=== PATIENT | male | born 1945 | race Caucasian/White ===

== ENCOUNTER 2017-05-06 09:37 | Emergency (ER) | payer OTHER ==
[~2017-05-06] VITALS: Ht 185.4 cm; Wt 98.0 kg
[2017-05-06 09:40] VITALS: BP 175/94; PULSE 102; RESP 16; TEMP 98.4; O2SAT 98
[2017-05-06 09:48] VITALS: PULSE 90
--- NOTE | 2017-05-06 10:27 | PD ---
HPI Chief Complaint: Complaint Time Seen by Provider: 10:20 Travel History International Travel<30 days: No Contact w/Intl Traveler<30days: No Traveled to known affect area: No History of Present Illness HPI 71-year-old male with remote history of prostate cancer, presents to the emergency department for evaluation of hematuria. Patient states over the last 2 months he has had intermittent episodes of hematuria. His last being this morning. He states that he had difficulty starting to void and then he voided a blood clot and has urine became clear. He has not informed his primary care provider follow-up with urology for this. Denies any abdominal pain. No nausea or vomiting. No fever or chills. He has no other symptoms to report. PFSH Past Medical History Hx Anticoagulant Therapy: No Cancer: Yes (prostate removed 2006) Cardiovascular Problems: No Chemotherapy: No Cerebrovascular Accident: No Diabetes: No Respiratory: No Tetanus Vaccination: < 5 Years ?: Not Past Surgical History Hysterectomy: No Neurologic Surgery: Yes (bleeding on the brain 2008 s/p fall) Social History Alcohol Use: Yes Tobacco Use: No Substance Use: No Allergies-Medications (Allergen,Severity, Reaction): Coded Allergies: No Known Allergies (Unverified , 05/06/17) Reported Meds & Prescriptions Reported Meds & Active Scripts Active Keflex (Cephalexin) 500 Mg Cap 500 Mg PO Q12H 7 Days Review of Systems Except as stated in HPI: all other systems reviewed are Neg Physical Exam Narrative GENERAL: Well-nourished male patient, in no acute distress SKIN: Focused skin assessment warm/dry. HEAD: Atraumatic. Normocephalic. EYES: Pupils equal and round. No scleral icterus. No injection or drainage. ENT: No nasal bleeding or discharge. Mucous membranes pink and moist. NECK: Trachea midline. No JVD. CARDIOVASCULAR: Regular rate and rhythm. No murmur appreciated. RESPIRATORY: No accessory muscle use. Clear to auscultation. Breath sounds equal bilaterally. GASTROINTESTINAL: Abdomen soft, non-tender, nondistended. Hepatic and splenic margins not palpable. MUSCULOSKELETAL: No obvious deformities. No clubbing. No cyanosis. No edema. NEUROLOGICAL: Awake and alert. No obvious cranial nerve deficits. Motor grossly within normal limits. Normal speech. PSYCHIATRIC: Appropriate mood and affect; insight and judgment normal. Data Data Last Documented VS Vital Signs Date Time Temp Pulse Resp B/P (MAP) Pulse Ox O2 Delivery O2 Flow Rate FiO2 05/06/17 11:16 74 16 144/82 (102) 98 05/06/17 09:40 98.4 Orders Orders Urinalysis - C+S If Indicated (05/06/17 10:27) Labs Laboratory Tests Test 05/06/17 10:45 Urine Color LIGHT-YELLOW Urine Turbidity CLEAR Urine pH 6.0 Urine Specific [place] 1.010 Urine Protein TRACE mg/dL Urine Glucose (UA) NEG mg/dL Urine Ketones 10 mg/dL Urine Occult Blood MOD Urine Nitrite NEG Urine Bilirubin NEG Urine Urobilinogen LESS THAN 2.0 MG/DL Urine Leukocyte Esterase NEG Urine RBC 63 /hpf Urine WBC 7 /hpf Microscopic Urinalysis Comment CULT NOT INDICATED MDM Medical Decision Making Medical Screen Exam Complete: Yes Emergency Medical Condition: Yes Medical Record Reviewed: Yes Differential Diagnosis Acute hemorrhagic cystitis versus renal calculi versus neoplasm Narrative Course 71-year-old male presents to emergency department for evaluation of hematuria. Patient appears without distress. His vital signs are stable. Abdominal exam is benign. Laboratory Tests Test 05/06/17 10:45 Urine Color LIGHT-YELLOW Urine Turbidity CLEAR Urine pH 6.0 Urine Specific [place] 1.010 Urine Protein TRACE mg/dL Urine Glucose (UA) NEG mg/dL Urine Ketones 10 mg/dL Urine Occult Blood MOD Urine Nitrite NEG Urine Bilirubin NEG Urine Urobilinogen LESS THAN 2.0 MG/DL Urine Leukocyte Esterase NEG Urine RBC 63 /hpf Urine WBC 7 /hpf Microscopic Urinalysis Comment CULT NOT INDICATED I have discussed the results of the patient. I will start him on oral antibiotics in case this is a hemorrhagic cystitis, however I have stressed the importance of him following up for further evaluation of this. He is with his daughter and they both verbalized understanding. They agree to return immediately with any acute worsening symptoms. Diagnosis Primary Impression: Hematuria Qualified Codes: R31.9 - Hematuria, unspecified Referrals: Good Lozada DO Primary Care Physician Urologist Patient Instructions: General Instructions, Hematuria (ED) Additional Instructions: It is important that you seek urology evaluation for further evaluation of your hematuria even if it resolve following antibiotic use Return immediately to the emergency department with any acute worsening symptoms Med/Other Pt SpecificInfo: Prescription(s) given Scripts Cephalexin (Keflex) 500 Mg Cap 500 MG PO Q12H for Infection for 7 Days, CAP 0 Refills Prov: Shea Gore 05/06/17 Disposition: 01 DISCHARGE HOME Condition: Stable Shea Gore May 06, 2017 10:27
[2017-05-06 11:00] LABS: BLOOD, URINE MOD (NEG); COMMENT (UR) CULT NOT INDICATED; CULTURE IF INDICATED CULT NOT INDICATED; GLUCOSE,URINE NEG (NEG); KETONE, URINE 10 mg/dL (NEG); NITRITE,URINE NEG (NEG); URINE COLOR LIGHT-YELLOW (YELLW/STRAW)
[2017-05-06] MEDS ORDERED: CEPH-460 PO (11:08)
[2017-05-06 11:16] VITALS: BP 144/82
== END 2017-05-06 11:23 | disposition home or self-care (01) ==
LOC: NEPD 09:37
DX: R31.9 Hematuria, unspecified (principal); Z85.46 Personal history of malignant neoplasm of prostate
CPT/HCPCS: 81001; 99283

== ENCOUNTER 2018-05-19 19:44 | Inpatient (IN) ==
[2018-05-19] MEDS ORDERED: HYDROmorphone PF Inj 2 MG/ML Vial IV.PUSH ONE ×2 (19:53→21:04)
--- NOTE | 2018-05-19 20:00 | ED ---
HPI General Chief complaint: Pain: Chronic Stated complaint: Leg pain Time Seen by Provider: 05/19/18 19:53 Source: patient, EMS and old records reviewed History of Present Illness HPI narrative: The patient is 72-year-old male with stage IV bone cancer bilateral thighs that was seen here at 9 AM for intractable pain was treated with IV Dilaudid. He was discharged sent home but family with help the hydrocodone that he has because they felt like he might interact with the Dilaudid that was given to him. The called EMS and brought to the emergency department for evaluation and pain management. His primary care physician is Dr. Gonzalez and Dr. Boyer oncology. Has Hx/o primary prostate cancer Location: lower extremity (proximal thighs bilaterally.) Radiation: non-radiation Severity: severe Severity scale (1-10): 10 Quality: stabbing and sharp Pain Consistency: constant Relieving factors: none Exacerbating factors: movement Treatments prior to arrival: other (IV Morphine 5mg) Related Data Home Medications Medication Instructions Recorded Confirmed baclofen 10 mg PO TID 05/19/18 05/19/18 hydrocodone-acetaminophen 1 tab PO Q4-6H PRN 05/19/18 05/19/18 Previous Rx's Medication Instructions Recorded hydromorphone [Dilaudid] 2 mg PO Q6H PRN #24 tab 05/19/18 bisacodyl [Bisac-Evac] 10 mg ND DAILY PRN ea 05/20/18 hydromorphone 1 mg IV.PUSH Q3H PRN ml 05/20/18 lactulose 30 ml PO DAILY PRN ml 05/20/18 magnesium hydroxide [Milk of 30 ml PO Q12H PRN ml 05/20/18 Magnesia] morphine 4 mg IV.PUSH Q1H PRN ml 05/20/18 oxycodone 10 mg PO Q4H PRN tab 05/20/18 oxycodone [OxyContin] 20 mg PO Q12HR tab 05/20/18 sennosides [Senna Lax] 17.2 mg PO Q12H PRN tab 05/20/18 sennosides-docusate sodium [Senna 1 tab PO BID tab 05/20/18 Plus] Allergies Allergy/AdvReac Type Severity Reaction Status Date / Time No Known Allergies Allergy Verified 05/19/18 19:52 Review of Systems ROS: all other systems reviewed are negative PMFSH History History Provided By: Patient, Medical Record and Bobbin Winder Tender / EMT Medical History Medical History Chronic anemia (Acute) Chronic kidney disease, stage 3 (Acute) Diabetes mellitus (Acute) History of subdural hemorrhage (Acute) Hyperlipidemia (Acute) Metastatic bone cancer (Acute) Prostate CA (Acute) Surgical History Surgical History H/O prostatectomy (Acute) History of inguinal hernia repair (Acute) Social History Social History Substance History: No History of Abuse Second Hand Smoke Exposure: No Smoking Status: Former smoker Tobacco Type: Cigarettes How Often Do You Have a Drink Containing Alcohol: Monthly or less Recent Travel in [facility] within the Last 8 Weeks: No Recent Out of Country Travel within the Last 8 Weeks: No Exam Narrative Exam Narrative: GENERAL: alert in moderate distress from pain. SKIN: Focused skin assessment warm/dry. HEAD: Atraumatic. Normocephalic. EYES: Pupils equal and round. No scleral icterus. No injection or drainage. ENT: No nasal bleeding or discharge. Mucous membranes pink and moist. NECK: Trachea midline. No JVD. CARDIOVASCULAR: Regular rate and rhythm. No murmur appreciated. RESPIRATORY: No accessory muscle use. Clear to auscultation. Breath sounds equal bilaterally. GASTROINTESTINAL: Abdomen soft, non-tender, nondistended. Hepatic and splenic margins not palpable. MUSCULOSKELETAL: No obvious deformities. severe tendernees to palpation over the bilateral thighs. No clubbing. No cyanosis. No edema. NEUROLOGICAL: Awake and alert. No obvious cranial nerve deficits. Motor grossly within normal limits. Normal speech. PSYCHIATRIC: Appropriate mood and affect; insight and judgment normal. Course Hospital Course: Patient required multiple doses of IV Dilaudid. There was erroneous lab draw for potassium of 2.7 and repeat was within normal limits likely a line draw. Otherwise unremarkable evaluation with the exception of persistent hypertension likely secondary to pain improved after pain medications given. Reevaluation(s) Reevaluation #2: pt is resting more comfortably than before. His pain has subsided. BP is still elevated we will rechceck. Last measurment was 182/90 Time: 21:25 Initial Documented Vital Signs Temperature 98 F 05/19/18 19:52 Pulse Rate 98 H 05/19/18 19:52 Respiratory Rate 18 05/19/18 19:52 Blood Pressure 182/90 H 05/19/18 19:52 Pulse Oximetry 95 05/19/18 19:52 Last Documented Vital Signs Temperature 97.2 F L 05/20/18 16:00 Pulse Rate 86 05/20/18 16:00 Respiratory Rate 18 05/20/18 16:00 Blood Pressure 192/82 H 05/20/18 16:00 Pulse Oximetry 97 05/20/18 16:00 Medical Decision Making MDM Narrative Medical Screen Exam Complete: Yes Emergency Medical Condition: Yes Medical Records Medical records reviewed: Yes I reviewed the patient's medical records. Lab Data Lab results reviewed: Yes I reviewed the patient's lab results. Result diagrams: 05/19/18 20:33 05/19/18 22:29 Lab Results 05/19/18 05/19/18 05/19/18 Range/Units 20:33 20:33 22:29 WBC 5.6 (4.0-11.0) th/mm3 RBC 3.91 L (4.50-5.90) mil/mm3 Hgb 10.4 L (13.0-17.0) gm/dL Hct 31.2 L (39.0-51.0) % MCV 79.7 L (80.0-100.0) fL MCH 26.7 L (27.0-34.0) pg MCHC 33.5 (32.0-36.0) % RDW 14.6 (11.6-17.2) % Plt Count 223 (150-450) th/mm3 MPV 7.9 (7.0-11.0) fL Neut % (Auto) 81.2 H (16.0-70.0) % Lymph % (Auto) 9.0 (9.0-44.0) % [place] % (Auto) 9.2 H (0.0-8.0) % Eos % (Auto) 0.5 (0.0-4.0) % Baso % (Auto) 0.1 (0.0-2.0) % Neut # (Auto) 4.6 (1.8-7.7) th/mm3 Lymph # (Auto) 0.5 L (1.0-4.8) th/mm3 [place] # (Auto) 0.5 (0.0-0.9) th/mm3 Eos # (Auto) 0.0 (0.0-0.4) th/mm3 Baso # (Auto) 0.0 (0.0-0.2) th/mm3 WBC Differential . Differential Comment Auto diff final Sodium 146 H 143 (136-145) meq/L Potassium 2.9 L* D 4.5 D (3.5-5.1) meq/L Chloride 117 H D 107 D (98-107) meq/L Carbon Dioxide 20.2 L 26.2 (21.0-32.0) meq/L Anion Gap 9 10 (5-15) meq/L BUN 22 H 27 H (7-18) mg/dL Creatinine 1.10 1.52 H (0.60-1.30) mg/dL Estimated GFR 65 L 45 L (>89) mL/min Random Glucose 133 H 121 H (74-106) mg/dL Calcium 6.4 L* D 9.2 D (8.5-10.1) mg/dL Prot Corrected Calcium 7.6 L (8.5-10.1) mg/dL Total Protein 4.6 L (6.4-8.2) g/dL Urine Color (Yellw/Straw) Urine Clarity (Clear) Urine pH (5.0-8.5) Ur Specific [place] (1.002-1.035) Urine Protein (Neg-Trace) mg/dL Urine Glucose (UA) (Negative) mg/dL Urine Ketones (Negative) mg/dL Urine Occult Blood (Negative) Urine Nitrate (Negative) Urine Bilirubin (Negative) Urine Urobilinogen (Less than 2) mg/dL Ur Leukocyte Esterase (Negative) Urine RBC (0-3) /hpf Urine WBC (0-5) /hpf Ur Squamous Epith Cells (0-5) /hpf Urine Bacteria (None) /hpf Micro UA Comment Ur Microscopic Review Urine Culture Comments 05/20/18 Range/Units 09:00 WBC (4.0-11.0) th/mm3 RBC (4.50-5.90) mil/mm3 Hgb (13.0-17.0) gm/dL Hct (39.0-51.0) % MCV (80.0-100.0) fL MCH (27.0-34.0) pg MCHC (32.0-36.0) % RDW (11.6-17.2) % Plt Count (150-450) th/mm3 MPV (7.0-11.0) fL Neut % (Auto) (16.0-70.0) % Lymph % (Auto) (9.0-44.0) % [place] % (Auto) (0.0-8.0) % Eos % (Auto) (0.0-4.0) % Baso % (Auto) (0.0-2.0) % Neut # (Auto) (1.8-7.7) th/mm3 Lymph # (Auto) (1.0-4.8) th/mm3 [place] # (Auto) (0.0-0.9) th/mm3 Eos # (Auto) (0.0-0.4) th/mm3 Baso # (Auto) (0.0-0.2) th/mm3 WBC Differential Differential Comment Sodium (136-145) meq/L Potassium (3.5-5.1) meq/L Chloride (98-107) meq/L Carbon Dioxide (21.0-32.0) meq/L Anion Gap (5-15) meq/L BUN (7-18) mg/dL Creatinine (0.60-1.30) mg/dL Estimated GFR (>89) mL/min Random Glucose (74-106) mg/dL Calcium (8.5-10.1) mg/dL Prot Corrected Calcium (8.5-10.1) mg/dL Total Protein (6.4-8.2) g/dL Urine Color Yellow (Yellw/Straw) Urine Clarity Hazy H (Clear) Urine pH 5.0 (5.0-8.5) Ur Specific [place] 1.017 (1.002-1.035) Urine Protein 30 H (Neg-Trace) mg/dL Urine Glucose (UA) Negative (Negative) mg/dL Urine Ketones Trace H (Negative) mg/dL Urine Occult Blood Moderate H (Negative) Urine Nitrate Negative (Negative) Urine Bilirubin Negative (Negative) Urine Urobilinogen Less than 2 (Less than 2) mg/dL Ur Leukocyte Esterase Trace H (Negative) Urine RBC 6 H (0-3) /hpf Urine WBC 50 H (0-5) /hpf Ur Squamous Epith Cells <1 (0-5) /hpf Urine Bacteria Occasional H (None) /hpf Micro UA Comment Culture indicated Ur Microscopic Review Not Reportable Urine Culture Comments Culture indicated Discharge Plan Discharge Disposition Patient Disposition: 51 Hospice/Med Facility Discharge Condition Condition: Fair Discharge Order Discharge Orders: Discharge Order (Routine); Ordered 05/20/18 Ordered By: Tavares Kendrick Discharge Details Anticipated Discharge Date: 05/20/18 Discharge Comment: DC TO INPT HOSPICE Diagnosis: Intractable pain, Cancer of bone, Accelerated hypertension Physicians Team ED Provider: Niko Bundy Primary Care Provider: UNKNOWN, Attending Provider: Tavares Kendrick Other Providers: Matteo Vela ; Miguel Rivera ; Cami Adorno Discharge Interventions Interventions: ED Discharge Assessment Last Done: 05/20/18 04:15 Vital Signs Last Done: 05/19/18 23:58 Status ED Status: Left Department Discharge Information Discharge Date/Time: 05/20/18 04:53
[2018-05-19 20:58] LABS: Baso % (Auto) 0.1 % (0.0-2.0); Eos % (Auto) 0.5 % (0.0-4.0); Hematocrit 31.2 % (39.0-51.0); Hemoglobin 10.4 gm/dL (13.0-17.0); Lymph # (Auto) 0.5 th/mm3 (1.0-4.8); Mean Corpuscular HGB Conc 33.5 % (32.0-36.0); Mean Corpuscular Hemoglobin 26.7 pg (27.0-34.0); Mean Corpuscular Volume 79.7 fL (80.0-100.0); Mean Platelet Volume 7.9 fL (7.0-11.0); Mono # (Auto) 0.5 th/mm3 (0.0-0.9); Mono % (Auto) 9.2 % (0.0-8.0); Neut # (Auto) 4.6 th/mm3 (1.8-7.7); Neut % (Auto) 81.2 % (16.0-70.0); Platelet Count 223 th/mm3 (150-450); Red Blood Count 3.91 mil/mm3 (4.50-5.90); Red Cell Distribution Width 14.6 % (11.6-17.2); White Blood Count 5.6 th/mm3 (4.0-11.0)
[2018-05-19 21:25] LABS: Calcium 6.4 mg/dL (8.5-10.1); Carbon Dioxide 20.2 meq/L (21.0-32.0)
[2018-05-19 21:27] LABS: Potassium 2.9 meq/L (3.5-5.1)
[2018-05-19 21:43] LABS: Total Protein 4.6 g/dL (6.4-8.2)
[2018-05-19] MEDS: Potassium Chlor 20 mEq Premix 20 MEQ/100 ML PIGGYBACK IV.SIG ONE ×2 (22:02→23:57)
[2018-05-19 23:45] LABS: Potassium 4.5 meq/L (3.5-5.1)
[2018-05-19 23:46] LABS: Calcium 9.2 mg/dL (8.5-10.1); Carbon Dioxide 26.2 meq/L (21.0-32.0)
[2018-05-20] MEDS ORDERED: Naloxone Inj 0.4 MG/ML Vial IV.PUSH PRN (00:51)
[2018-05-20] MEDS ORDERED: Morphine Inj 4 MG/ML Vial IV.PUSH PRN (00:51)
[2018-05-20] MEDS ORDERED: Bisacodyl 10 MG Supp RECTAL PRN (00:56)
[2018-05-20] MEDS: Sod Chloride 0.9% Inj 1,000 ML IV.CONT SCH ×2 (01:56→12:45)
[2018-05-20] MEDS: oxyCODONE HCL 20 MG Controlled Release Tablet PO SCH ×2 (02:07→08:05)
--- NOTE | 2018-05-20 02:11 | P.HPIM ---
History of Present Illness Primary Care Physician: UNKNOWN History of Present Illness: 32-year-old male with a history of 4 metastatic prostate cancer who follows with Dr. Vela, who was seen in the ER this morning for intractable left hip pain CT showed metastasis to left hip, and patient was sent home with a prescription for Dilaudid. Prescription was not able to be filled on time, and patient found to be in acute intractable pain at home, brought in around 6 PM. Patient is currently somnolent, wakes up for exam, appears to be awake and listening to conversation, would not arouse to sternal rub, however will Suddenly and asked me to examine his left leg as I was moving the sheets off his leg. Patient is disoriented to year and month. Daughter at bedside provides most of the history. She says they have talked with hospice but that [place] [facility] will not let them do chemotherapy. She says that father is a DNR. She is interested in palliative care consultation. Family history attempted but patient very poor historian Review of Systems All other systems reviewed negative except as stated in HPI PMFSH - History History Provided By: Patient, Medical Record, Billboard Erector Helper / EMT - Medical History Medical History: Medical History (Last Reviewed 05/19/18 @ 19:57 by Niko Bundy DO) Metastatic bone cancer Prostate CA - Surgical History Surgical History: Surgical History (Last Updated 05/20/18 @ 02:03 by Jason Martinez MD) H/O prostatectomy - Tobacco History Second Hand Smoke Exposure: No Tobacco Use In Past 30 Days: No Smoking Status: Never smoker - Alcohol History How Often Do You Have a Drink Containing Alcohol: Never - Substance Use History Substance History: No History of Abuse - Travel History Recent Travel in the [place] Within the Last 8 Weeks: No Recent Travel Out of the Country Within the Last 8 Weeks: No - Immunization History Tetanus Immunization: Unsure Hx Influenza Vaccine This Season: No Medications and Allergies Active Medications: Active Medications Al Hydroxide/Mg Hydroxide (Milk Of Magnconstantino Liq) 30 ml PO Q12H PRN PRN Reason: Mild Constipation Baclofen (Lioresal) 10 mg PO TID DANIELLA Bisacodyl (Dulcolax Supp) 10 mg RECTAL DAILY PRN PRN Reason: SEVERE CONSITIPATION Hydromorphone HCl (Dilaudid Pf Inj) 1 mg IV.PUSH Q3H PRN PRN Reason: BREAKTHROUGH PAIN Sodium Chloride (Ns Inj) 1,000 mls @ 100 mls/hr IV.CONT .Q10H [facility] Last Admin: 05/20/18 01:56 Dose: 100 mls/hr Lactulose (Lactulose Liq) 30 ml PO DAILY PRN PRN Reason: SEVERE CONSITIPATION Morphine Sulfate (Morphine Inj) 4 mg IV.PUSH Q1H PRN PRN Reason: Pain Scale 7-10 (Intractable) Naloxone HCl (Narcan Inj) 0.4 mg IV.PUSH UNSCH PRN PRN Reason: SEE LABEL COMMENTS Oxycodone HCl (Roxicodone) 5 mg PO Q4H PRN PRN Reason: PAIN SCALE 3 TO 5 Oxycodone HCl (Roxicodone) 10 mg PO Q4H PRN PRN Reason: PAIN SCALE 6 TO 10 Oxycodone HCl (Oxycontin Cr) 20 mg PO Q12HR [facility] Pt Own Xtandi 160 Mg 0 each PO DAILY [facility] Senna/Docusate Sodium (Elizabeth-Colace) 1 tab PO BID [facility] Sennosides (Senokot) 17.2 mg PO Q12H PRN PRN Reason: Moderate Constipation Allergies Allergy/AdvReac Type Severity Reaction Status Date / Time No Known Allergies Allergy Verified 05/19/18 19:52 Home Medications Medication Instructions Recorded Confirmed Type baclofen 10 mg PO TID 05/19/18 05/19/18 History enzalutamide [Xtandi] 160 mg PO DAILY 05/19/18 05/19/18 History hydrocodone-acetaminophen 1 tab PO Q4-6H PRN 05/19/18 05/19/18 History Exam Vital signs: Vital Signs 05/19/18 19:52 05/19/18 22:33 05/19/18 23:58 Temperature 98 F Pulse Rate 98 H 85 81 Respiratory Rate 18 20 20 Blood Pressure 182/90 H 173/78 H 162/77 H Pulse Oximetry 95 98 99 Intake & Output 05/19/18 05/19/18 05/20/18 06:59 18:59 06:59 Weight 95.254 kg Narrative: GENERAL: Patient sleeping, wakes up for exam. Oriented to place, not to year or month. SKIN: Warm and dry. HEAD: Atraumatic. Normocephalic. EYES: Pupils equal and round. No scleral icterus. No injection or drainage. ENT: No nasal bleeding or discharge. Mucous membranes pink and moist. NECK: Trachea midline. No JVD. CARDIOVASCULAR: Regular rate and rhythm. RESPIRATORY: No accessory muscle use. Clear to auscultation. Breath sounds equal bilaterally. GASTROINTESTINAL: Abdomen soft, non-tender, nondistended. Hepatic and splenic margins not palpable. MUSCULOSKELETAL: Extremities without clubbing, cyanosis, or edema. No obvious deformities. NEUROLOGICAL: Awake and alert. No obvious cranial nerve deficits. Motor grossly within normal limits. Patient moves bilateral upper extremities, as well as bilateral lower extremities. Does not want me to examine left leg. Perfusion intact. Patient moves legs spontaneously no broken skin. Results - Labs CBC & Chem 7: 05/19/18 20:33 05/19/18 22:29 Labs: Short CBC 05/19/18 Range/Units 20:33 WBC 5.6 (4.0-11.0) th/mm3 Hgb 10.4 L (13.0-17.0) gm/dL Hct 31.2 L (39.0-51.0) % Plt Count 223 (150-450) th/mm3 [place] 05/19/18 05/19/18 20:33 22:29 Sodium 146 H 143 Potassium 2.9 L* D 4.5 D Chloride 117 H D 107 D Carbon Dioxide 20.2 L 26.2 BUN 22 H 27 H Creatinine 1.10 1.52 H Calcium 6.4 L* D 9.2 D Caprini VTE Risk Assessment Caprini VTE Risk Assessment: Moderate/High Risk (score >= 2) Caprini Risk Assessment Model: Point Value = 1 Point Value = 2 Point Value = 3 Point Value = 5 Age 41-60 Minor surgery BMI > 25 kg/m2 Swollen legs Varicose veins or History of unexplained or recurrent spontaneous Oral contraceptives or hormone replacement Sepsis (< 1 month) Serious lung disease, including pneumonia (< 1 month) Abnormal pulmonary function Acute myocardial infarction Congestive heart failure (< 1 month) History of inflammatory bowel disease Medical patient at bed rest Age 61-74 Arthroscopic surgery Major open surgery (> 45 min) Laparoscopic surgery (> 45 min) Malignancy Confined to bed (> 72 hours) Immobilizing plaster cast Central venous access Age >= 75 History of VTE Family history of VTE Factor V Leiden Prothrombin [id number] Lupus anticoagulant Anticardiolipin antibodies Elevated serum homocysteine Heparin-induced thrombocytopenia Other congenital or acquired thrombophilia Stroke (< 1 month) Elective arthroplasty Hip, pelvis, or leg fracture Acute spinal cord injury (< 1 month) Prophylaxis Regimen: Total Risk Factor Score Risk Level Prophylaxis Regimen 0-1 Low Early ambulation 2 Moderate Order ONE of the following: *Sequential Compression Device (SCD) *Heparin 5000 units SQ BID 3-4 Higher Order ONE of the following medications: *Heparin 5000 units SQ TID *Enoxaparin/Lovenox 40 mg SQ daily (WT < 150 kg, CrCl > 30 mL/min) *Enoxaparin/Lovenox 30 mg SQ daily (WT < 150 kg, CrCl > 10-29 mL/min) *Enoxaparin/Lovenox 30 mg SQ BID (WT < 150 kg, CrCl > 30 mL/min) AND/OR *Sequential Compression Device (SCD) 5 or more Highest Order ONE of the following medications: *Heparin 5000 units SQ TID (Preferred with Epidurals) *Enoxaparin/Lovenox 40 mg SQ daily (WT < 150 kg, CrCl > 30 mL/min) *Enoxaparin/Lovenox 30 mg SQ daily (WT < 150 kg, CrCl > 10-29 mL/min) *Enoxaparin/Lovenox 30 mg SQ BID (WT < 150 kg, CrCl > 30 mL/min) AND *Sequential Compression Device (SCD) Assessment and Plan - Plan //Metastatic prostate cancer to bone //Intractable malignant pain CT pelvis from this morning with left hip fracture = We will order pain regimen. Start on OxyContin 20 mg twice daily for basal pain control. = We will continue chemotherapy medication Consult urology. Consult palliative care. Will place hospice consult //Patient reports dysuria as a positive finding on review of systems. Will check urinalysis. //CODE STATUS DNR as per discussion with daughter Discussed Condition With: Patient, nurse, ED physician, daughter at bedside.
[2018-05-20] MEDS: Baclofen 10 MG Tablet PO SCH ×3 (08:05→17:29)
[2018-05-20] MEDS ORDERED: XTANDI 40 MG PO SCH (09:00)
[2018-05-20] MEDS ORDERED: Senna/Docusate Sodium 8.6/50 MG Tablet PO SCH (09:00)
--- NOTE | 2018-05-20 10:17 | P.CONPAL ---
Consult Service: Palliative Care Requesting Physician: Jason Martinez Reason for Consult: a. To assist with evaluation and management of symptoms including: Pain, debility b. To assist medical decision maker(s) with: better understanding of current medical conditions; weighing benefits/burdens of medical treatment options; making medical treatment decisions. Primary Care Provider: UNKNOWN History of Present Illness History of Present Illness: Mr. 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 Patient presented to the emergency room via EMS on 05/19/18 with complaints of intractable pain to left hip. Patient had presented earlier on in the morning of 05/19 complaining of left hip pain and CT showed metastasis to left hip. Patient was sent home with a prescription for hydromorphone which he was not able to fill and ended up coming back to the emergency room around 1800 hrs. Femur x-ray done during ER visit 05/19/18 in the morning revealed diffuse bony metastatic disease with no pathologic fracture or joint dislocation. CT done during ER visit in the morning of 05/19/18 revealed widespread bony metastatic disease and increased risk of pathologic fracture due to bone lysis in the proximal left femoral shaft. Urinalysis was positive for urine nitrate and leukocyte esterase as well as urine bacteria-Culture results pending. Patient was originally diagnosed with prostate cancer in April 2007 and he was treated with prostatectomy the same year. He was then diagnosed with stage IV metastatic bone cancer in 2016 and he has undergone chemotherapy and had radiation therapy. Last PSA was 26 in February, and he was started on Xtandi. Patient was being managed by Dr. Vela urology and was referred to radiation/ oncologist for treatment of bone metastases last week. ER course: * Vital signs: temperature 98 degrees Fahrenheit, pulse 98, respirations 18, blood pressure 182/90, O2 saturation 95%. * Laboratory workup revealed WBC 5.6, hemoglobin 10.4, hematocrit 31.2, platelet count 223, sodium 146, potassium 2.9, BUN/creatinine 22/1.10, calcium 6.4, total protein 4.6. * Patient admitted for further evaluation and treatment under hospitalist services. Urology consulted on 05/19/18, consult pending. Clinical course complicated with excruciating pain. Palliative care consulted to assist with symptom management and establishment of goals of medical treatment. Patient seen and examined in the presence of his daughter Jasmin Chavez. Patient is alert, oriented to self, place and situation. Patient endorsing pain all over especially to his left lower extremity. He rates his pain as 7 out of 10 after being medicated with hydromorphone 1 mg approximately 30 minutes before reassessment. Per bedside RN patient has been saying, " let me " and is very painful during care. During this first visit, introduced role of palliative care in regards to symptom management as well as establishment of goals of medical treatment. Patient's daughter and patient receptive to palliative care. Obtained patient's past medical history, and psychosocial history. Reviewed events leading to this hospitalization, clinical course and complications as well as current medical management. Patient appears to be insightful and aware of his current medical status. He demonstrates ability to weigh burdens and benefits of treatments offered. Patient's daughter narrated patient`s progressive trajectory of illness since last year and significant decline in the past month. Readdressed CODE STATUS, patient elected DNR/DNI. Patient is willing to complete & sign [facility] DNR. Patient understands that despite pursuing aggressive treatment, his quality of life continues to deteriorate. Reintroduced hospice philosophy and benefits. Patient states that he no longer wants to pursue any further aggressive treatment. Patient states that he now wants to stop Xtandi or any treatment that will not help with managing of his symptoms. He now wants comfort care only through hospice services. Patient's daughter present during meeting and is supportive of her father`s decision. Patient went ahead and designated his daughter Jasmin as his healthcare surrogate and his son-in-law Kevin as his alternate healthcare surrogate-form completed and signed by patient and witnessed by palliative care VERIFYING MACHINE OPERATOR and bedside RN Patti Mustafa. Patient also signed [facility] DNR. Hospice consult placed. Case discussed with bedside RN, case management, hospice case manager, and Dr. Kendrick. . Function/Cognitive Trajectory: In March [address] and get around including being independent of his ADLs. Patient fell in February, and he has also had poor appetite with decreased oral intake. He has lost approximately 30 pounds in less than a month. Patient has also been having problems with increased weakness and he has been ambulating using a Rollator at home. Currently, patient is in so much pain and is not able to sit upright in bed or ambulate on his own. Per daughter he last ambulated on 05/18/18. Patient`s daughter stated that they have been told that cancer has metastasized to his skull, spine, shoulders, pelvis and bilateral femurs more-so to left femur. Patient was referred to hospice services on 05/15/18 by [facility]. At that time patient met with hospice staff in the presence of his daughter and son on 05/17/18 and his goals where aggressive. Patient wanted enough time to see if the new medication Xtandi he was started on would produce positive results and patient was also seeking radiation treatments because the previous radiation therapy was successful. Goals at that time remained aggressive. Patient did not enroll in hospice services at that time. Review of Systems Constitutional: Reports excessive sweating, Reports fatigue, Reports lack of energy, Reports weakness, Reports weight loss Eyes: Denies blurry vision Ears, Nose, Mouth, and Throat: Reports poor balance, Denies abnormal hearing, Denies hearing loss, Denies nasal congestion, Denies pain with swallowing Cardiovascular: Reports leg pain with activity, Reports leg swelling (Left thigh ), Denies chest pain, Denies shortness of breath Respiratory: Denies chest congestion, Denies cough, Denies shortness of breath Gastrointestinal: Denies difficulty swallowing, Denies incontinent of stools, Denies nausea, Denies vomiting Genitourinary: Reports painful urination (Sometimes) Musculoskeletal: Reports body aches, Reports joint swelling (Left lower extremity), Reports muscle weakness, Reports numbness, Reports tingling Skin/Breast: Denies bleeding lesions, Denies skin ulcer, Denies unusual bruising Neurologic: Reports abnormal movements, Reports frequent falls, Reports unsteadiness, Reports weakness, Reports other (Forgetful) Psychiatric: Reports anxiety, Reports change in appetite Endocrine: Denies increased hunger Hematologic/Lymphatic: Denies easy bruising PMFSH - History History Provided By: Patient, Medical Record - Medical History Medical History: Medical History (Last Updated 05/20/18 @ 10:29 by Em Gonzales) Chronic anemia Chronic kidney disease, stage 3 Diabetes mellitus History of subdural hemorrhage Hyperlipidemia Metastatic bone cancer Prostate CA - Surgical History Surgical History: Surgical History (Last Updated 05/20/18 @ 10:20 by Em Grissom H/O prostatectomy History of inguinal hernia repair - Tobacco History Second Hand Smoke Exposure: No Tobacco Use In Past 30 Days: No Smoking Status: Former smoker Tobacco Type: Cigarettes - Alcohol History How Often Do You Have a Drink Containing Alcohol: Monthly or less - Substance Use History Substance History: No History of Abuse - Travel History Recent Travel in the [place] Within the Last 8 Weeks: No Recent Travel Out of the Country Within the Last 8 Weeks: No - Immunization History Tetanus Immunization: <5 Years Hx Influenza Vaccine This Season: Yes Medications and Allergies Active Medications: Active Medications Al Hydroxide/Mg Hydroxide (Milk Of Magnesia Liq) 30 ml PO Q12H PRN PRN Reason: Mild Constipation Baclofen (Lioresal) 10 mg PO TID [facility] Last Admin: 05/20/18 08:05 Dose: 10 mg Bisacodyl (Dulcolax Supp) 10 mg RECTAL DAILY PRN PRN Reason: SEVERE CONSITIPATION Hydromorphone HCl (Dilaudid Pf Inj) 1 mg IV.PUSH Q3H PRN PRN Reason: BREAKTHROUGH PAIN Sodium Chloride (Ns Inj) 1,000 mls @ 100 mls/hr IV.CONT .Q10H [facility] Last Admin: 05/20/18 01:56 Dose: 100 mls/hr Lactulose (Lactulose Liq) 30 ml PO DAILY PRN PRN Reason: SEVERE CONSITIPATION Morphine Sulfate (Morphine Inj) 4 mg IV.PUSH Q1H PRN PRN Reason: Pain Scale 7-10 (Intractable) Naloxone HCl (Narcan Inj) 0.4 mg IV.PUSH UNSCH PRN PRN Reason: SEE LABEL COMMENTS Oxycodone HCl (Roxicodone) 5 mg PO Q4H PRN PRN Reason: PAIN SCALE 3 TO 5 Oxycodone HCl (Roxicodone) 10 mg PO Q4H PRN PRN Reason: PAIN SCALE 6 TO 10 Last Admin: 05/20/18 06:00 Dose: 10 mg Oxycodone HCl (Oxycontin Cr) 20 mg PO Q12HR [facility] Last Admin: 05/20/18 08:05 Dose: 20 mg Pt Own Xtandi 40 Mg (Capsule) 0 each PO DAILY [facility] Senna/Docusate Sodium (Elizabeth-Colace) 1 tab PO BID [facility] Last Admin: 09/26/18 08:06 Dose: 1 tab Sennosides (Senokot) 17.2 mg PO Q12H PRN PRN Reason: Moderate Constipation Allergies Allergy/AdvReac Type Severity Reaction Status Date / Time No Known Allergies Allergy Verified 05/19/18 19:52 Home Medications Medication Instructions Recorded Confirmed Type baclofen 10 mg PO TID 05/19/18 05/19/18 History hydrocodone-acetaminophen 1 tab PO Q4-6H PRN 05/19/18 05/19/18 History Advance Directives Advance Directives Date on File: 05/20/18 Living Will: Yes Healthcare Surrogate: Yes (Completed and signed today) Health Care Surrogate Name and Number: [facility]:Jasmin Chavez [phone] Alt HCS : Kevin Chavez [phone] Power of Counter Clerk [employer]: Unknown (Patient`s daughter is not sure ifpatient has ever completed DPOA. She called PCP office and they did not have advance directives) Power of [employer] Relationship to Patient: Children Today's verbally stated goals: Not sure if he ever completed a living will. Today patient decided to forgo any further aggressive treatment and now seeks comfort care only through hospice services. . Family/friends goals: Daughter supportive of patient`s decision to forgo aggressive treatment and pursue comfort care only through hospice. . Physical Exam Vital Signs: Vital Signs - 24 hr 05/19/18 19:52 05/19/18 22:33 05/19/18 23:58 Temperature 98 F Pulse Rate 98 H 85 81 Respiratory Rate 18 20 20 Blood Pressure 182/90 H 173/78 H 162/77 H Pulse Oximetry 95 98 99 05/20/18 04:34 05/20/18 06:05 05/20/18 08:00 Temperature 97.9 F Pulse Rate 82 85 Respiratory Rate 18 18 Blood Pressure 177/84 H 182/83 H Pulse Oximetry 99 97 I&O: Intake & Output 05/18/18 05/19/18 05/20/18 05/21/18 06:59 06:59 06:59 06:59 Weight 95.3 kg Physical Exam: CONSTITUTIONAL/GENERAL: This is a chronically ill elderly patient, complaining of pain to his left lower extremity. TUBES/LINES/DRAINS:PIV, condom catheter SKIN: No jaundice, rashes, or lesions. Ecchymoses on upper extremities. No wounds seen anteriorly. Skin temperature appropriate. Not diaphoretic. HEAD: Atraumatic. Normocephalic. EYES: Pupils equal and round and reactive. Extraocular motions intact. No scleral icterus. No injection or drainage. Fundi not examined. ENT: Hearing grossly normal. Nose without bleeding or purulent drainage. Moist oral mucosa NECK: Trachea midline. Supple, nontender. CARDIOVASCULAR: Regular rate and rhythm without murmurs, gallops, or rubs. No JVD. Peripheral pulses symmetric. RESPIRATORY/CHEST: Symmetric, unlabored respirations. Clear to auscultation. Breath sounds equal bilaterally. No wheezes, rales, or rhonchi. GASTROINTESTINAL: Abdomen soft, non-tender, distended. No guarding. Bowel sounds present. GENITOURINARY: Without palpable bladder distension. No catheter MUSCULOSKELETAL: Extremities without clubbing, cyanosis. Edema to left lower extremity no joint tenderness or effusion noted. No calf tenderness. No mottling or clubbing. NEUROLOGICAL: Awake and alert. Motor and sensory grossly within normal limits. Follows commands. Moves all extremities. PSYCHIATRIC: No obvious anxiety/depression. no apparent hallucinations or other psychotic thought process. Diagnostic Tests Laboratory: Laboratory Results - last 72 hr 05/19/18 05/19/18 05/19/18 20:33 20:33 22:29 WBC 5.6 RBC 3.91 L Hgb 10.4 L Hct 31.2 L MCV 79.7 L MCH 26.7 L MCHC 33.5 RDW 14.6 Plt Count 223 MPV 7.9 Neut % (Auto) 81.2 H Lymph % (Auto) 9.0 [place] % (Auto) 9.2 H Eos % (Auto) 0.5 Baso % (Auto) 0.1 Neut # (Auto) 4.6 Lymph # (Auto) 0.5 L [place] # (Auto) 0.5 Eos # (Auto) 0.0 Baso # (Auto) 0.0 WBC Differential . Differential Comment Auto diff final Sodium 146 H 143 Potassium 2.9 L* D 4.5 D Chloride 117 H D 107 D Carbon Dioxide 20.2 L 26.2 Anion Gap 9 10 BUN 22 H 27 H Creatinine 1.10 1.52 H Estimated GFR 65 L 45 L Random Glucose 133 H 121 H Calcium 6.4 L* D 9.2 D Prot Corrected Calcium 7.6 L Total Protein 4.6 L Result Diagrams: 05/19/18 20:33 05/19/18 22:29 Patient/Family Conference Family Conference Location: Bedside Issues Discussed: * Palliative care role, purpose, approach * Additional medical, psychosocial, and spiritual history * Patients general health, functional status, and cognitive changes in the months leading up to the current hospitalization * Patient/family understanding of the current medical problems * Patient/family understanding of prognosis * Patients goals of care as best understood from advance directives and/or conversations and/or values * Current medical treatment options and benefits/burdens of those options * Likely scenarios comparing ongoing aggressive care with a transition to comfort measures only * Questions answered to the best of my ability * Introduced hospice philosophy and benefits * Palliative care contact information provided Assessment and Plan - Symptom Scale (1) Pain 0-10 Scale: 7 (Patient has stage IV metastatic prostate cancer-metastasis to the bone. Generalized, mostly complaining of left lower extremity pain.) (2) Debility 0-10 Scale: Unable to quantify Comment: Progressive. Pertinent Non-Medical Issues: Psychosocial: Patient is originally from [place], [place]. He spent most of his childhood in [place], [place]. Patient served in the [employer] He was and 3 times. Patient's daughter is not sure if his third divorce was finalized but he has been from his 3rd since July, when he moved to [place]. Patient currently lives alone in an apartment, his daughter and son-in-law check on him frequently. Patient his 4 adult children, one daughter-Jasmin Chavez, and 3 sons Magdalena Moralez, Magdalena Ma and Rc Nichols. Spiritual: Patient is [employer]-receptive to visits Legal: Patient is not sure whether he has completed POA in the past. Patient went ahead and completed healthcare surrogate today 05/20/18 Ethical issues impacting care: None identified at this time Important Contacts: HCS:Scott Jasmin [phone] (daughter) Alt HCS: Kevin Chavez [phone] (son-in-law) . Prognosis: Mr. 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 Patient presented to the emergency room via EMS on 05/19/18 with complaints of intractable pain to left hip. Patient had presented earlier on in the morning of 05/19 complaining of left hip pain and CT showed metastasis to left hip. Patient was sent home with a prescription for hydromorphone which she was not able to feel and ended up coming back to the emergency room around 1800 hrs. Femur x-ray done during ER visit 05/19/18 in the morning revealed diffuse bony metastatic disease with no pathologic fracture or joint dislocation. CT done during ER visit in the morning of 05/19/18 revealed widespread bony metastatic disease and increased risk of pathologic fracture due to bone lysis in the proximal left femoral shaft. Clinical course complicated with progressive pain. Given multiple ongoing comorbidities and progressive decline despite treatment, patient remains at high risk for further complications, deterioration and decline. . Code Status: No Code DNR Plan: PLAN: Legal decision maker: Patient is currently able to participate in making his own medical decisions. In the event that he is incapacitated, he has designated his daughter Jasmin Chavez to serve as his healthcare surrogate and his son-in-law Kevin Chavez as his alternate healthcare surrogate Goals: Patient understands that despite pursuing aggressive treatment, his quality of life continues to deteriorate. Patient states that he no longer wants to pursue any further aggressive treatment. Patient states that he now wants to stop Xtandi or any treatment that will not help with managing his symptoms. He now wants comfort care only through hospice services. Patient's daughter present during meeting and is supportive of her father`s decision. Patient went ahead and designated his daughter Jasmin as his healthcare surrogate and his son-in-law as his alternate healthcare surrogate-form completed and signed by patient and witnessed by palliative care VERIFYING MACHINE OPERATOR and bedside RN Patti Mustafa. Patient also signed [facility] DNR. Hospice consult placed. CODE STATUS: No code DNR/DNI SYMPTOMS: * Pain:Patient has stage IV metastatic prostate cancer-metastasis to the bone. Generalized, mostly complaining of left lower extremity pain. * Debility: Progressive. Patient has stage IV metastatic prostate cancer. Patient has been progressively declining in the past year. As per his daughter , in a few month's time patient his declined from being able to live independently, drive himself to starting using crutches as well as rollator and has had falls at home. As of late this week patient has not been able to ambulate by himself due to excruciating pain. Patient will most likely not able to participate in rehabilitation if goals remain aggressive due to metastatic disease to bone and excruciating pain. Palliative care will continue to follow the patient during hospital course as condition evolves, to assist patient/decision-maker with understanding of their medical conditions, weighing benefits/burdens of treatment options, for clarification of goals of treatment. Additionally will assist with any symptoms of palliative concern Appreciation Thank you for the opportunity to participate in the care of Rc Mendosa. Attestation Attestation: To help prompt me to consider important information that might be impacting today's encounter and assessment, information from prior notes written by myself or my colleagues may have been "brought forward" into today's note. My signature on this note, however, is an attestation that I personally performed the exam, history, and/or decision-making noted today, and, unless otherwise indicated, the interactions with patient, family, and staff as well as the review of records all occurred today. I also attest that the listed assessment and stated plan reflect my best clinical judgment today based on the combination of historical information, prior notes, and today's exam/ interactions. When time spent is documented, it refers only to time spent today by the signer, or if indicated, combined time spent today by collaborating physician/nurse practitioner.
[2018-05-20] MEDS: HYDROmorphone PF Inj 2 MG/ML Vial IV.PUSH PRN ×3 (11:05→17:28)
--- NOTE | 2018-05-20 13:24 | P.CONURO ---
History of Present Illness Service: Urology Consult date: 05/20/18 Requesting Physician: Jason Martinez Reason for Consult: Back pain due to mets from [employer] Primary Care Provider: UNKNOWN Chief Complaint: Back pain History of Present Illness: 72-year-old male with a history of stage 4 metastatic prostate cancer who is well known to our practice and follows with Dr. Vela, He came to ER yesterday morning for intractable left hip pain CT showed metastasis to left hip, and patient was sent home with a prescription for Dilaudid. Prescription was not able to be filled on time, and patient found to be in acute intractable pain at home, brought in around 6 PM. Pt is somnolent due to meds he is taking and most history collected from other doctor's notes and his daughter. Pt was seen by Dr Vela last week after MRI and was referred to Radiation / Oncologist for treatment of his bone mets. But he is now admitted to the hospital for his severe bone/hip pain. Palliative care consulted and on board. Its difficult to control pt's pain and he choose to go for hospice Review of Systems All other systems reviewed negative except as stated in HPI PMFSH - History History Provided By: Patient, Medical Record - Medical History Medical History: Medical History (Last Updated 05/20/18 @ 10:29 by Em Gonzales) Chronic anemia Chronic kidney disease, stage 3 Diabetes mellitus History of subdural hemorrhage Hyperlipidemia Metastatic bone cancer Prostate CA - Surgical History Surgical History: Surgical History (Last Updated 05/20/18 @ 10:20 by Em Gonzales) H/O prostatectomy History of inguinal hernia repair - Tobacco History Second Hand Smoke Exposure: No Tobacco Use In Past 30 Days: No Smoking Status: Former smoker Tobacco Type: Cigarettes - Alcohol History How Often Do You Have a Drink Containing Alcohol: Monthly or less - Substance Use History Substance History: No History of Abuse - Travel History Recent Travel in the [place] Within the Last 8 Weeks: No Recent Travel Out of the Country Within the Last 8 Weeks: No - Immunization History Tetanus Immunization: <5 Years Hx Influenza Vaccine This Season: Yes Medications and Allergies Active Medications: Active Medications Al Hydroxide/Mg Hydroxide (Milk Of Magnconstantino Liq) 30 ml PO Q12H PRN PRN Reason: Mild Constipation Baclofen (Lioresal) 10 mg PO TID DANIELLA Last Admin: 05/20/18 12:44 Dose: 10 mg Bisacodyl (Dulcolax Supp) 10 mg RECTAL DAILY PRN PRN Reason: SEVERE CONSITIPATION Hydromorphone HCl (Dilaudid Pf Inj) 1 mg IV.PUSH Q3H PRN PRN Reason: BREAKTHROUGH PAIN Last Admin: 05/20/18 11:05 Dose: 1 mg Sodium Chloride (Ns Inj) 1,000 mls @ 100 mls/hr IV.CONT .Q10H [facility] Last Admin: 05/20/18 12:45 Dose: 100 mls/hr Lactulose (Lactulose Liq) 30 ml PO DAILY PRN PRN Reason: SEVERE CONSITIPATION Morphine Sulfate (Morphine Inj) 4 mg IV.PUSH Q1H PRN PRN Reason: Pain Scale 7-10 (Intractable) Naloxone HCl (Narcan Inj) 0.4 mg IV.PUSH UNSCH PRN PRN Reason: SEE LABEL COMMENTS Oxycodone HCl (Roxicodone) 5 mg PO Q4H PRN PRN Reason: PAIN SCALE 3 TO 5 Oxycodone HCl (Roxicodone) 10 mg PO Q4H PRN PRN Reason: PAIN SCALE 6 TO 10 Last Admin: 05/20/18 13:20 Dose: 10 mg Oxycodone HCl (Oxycontin Cr) 20 mg PO Q12HR [facility] Last Admin: 05/20/18 08:05 Dose: 20 mg Pt Own Xtandi 40 Mg (Capsule) 0 each PO DAILY [facility] Last Admin: 05/20/18 11:25 Dose: 4 each Senna/Docusate Sodium (Eliazbeth-Colace) 1 tab PO BID [facility] Last Admin: 05/20/18 08:06 Dose: 1 tab Sennosides (Senokot) 17.2 mg PO Q12H PRN PRN Reason: Moderate Constipation Allergies Allergy/AdvReac Type Severity Reaction Status Date / Time No Known Allergies Allergy Verified 05/19/18 19:52 Home Medications Medication Instructions Recorded Confirmed Type baclofen 10 mg PO TID 05/19/18 05/19/18 History enzalutamide [Xtandi] 160 mg PO DAILY 05/19/18 05/19/18 History hydrocodone-acetaminophen 1 tab PO Q4-6H PRN 05/19/18 05/19/18 History Physical Exam Vital Signs - 24 hr 05/19/18 19:52 05/19/18 22:33 05/19/18 23:58 Temperature 98 F Pulse Rate 98 H 85 81 Respiratory Rate 18 20 20 Blood Pressure 182/90 H 173/78 H 162/77 H Pulse Oximetry 95 98 99 05/20/18 04:34 05/20/18 06:05 05/20/18 08:00 Temperature 97.9 F Pulse Rate 82 85 Respiratory Rate 18 18 Blood Pressure 177/84 H 182/83 H Pulse Oximetry 99 97 05/20/18 11:55 Temperature 97.7 F Pulse Rate 87 Respiratory Rate 17 Blood Pressure 170/81 H Pulse Oximetry 99 Physical Exam: GENERAL: This is a well-nourished, well-developed patient, in no apparent distress. SKIN: No rashes, ecchymoses or lesions. Cool and dry. HEAD: Atraumatic. Normocephalic. CARDIOVASCULAR: Regular rate and rhythm without murmurs, gallops, or rubs. RESPIRATORY: Clear to auscultation. Breath sounds equal bilaterally. No wheezes , rales, or rhonchi. GASTROINTESTINAL: Abdomen soft, non-tender, nondistended. GENITOURINARY: No CVAT. [place] is in place MUSCULOSKELETAL: Extremities without clubbing, cyanosis, or edema. NEUROLOGICAL: somnolent, alert Laboratory Results - last 24 hr 05/19/18 05/19/18 05/19/18 20:33 20:33 22:29 WBC 5.6 RBC 3.91 L Hgb 10.4 L Hct 31.2 L MCV 79.7 L MCH 26.7 L MCHC 33.5 RDW 14.6 Plt Count 223 MPV 7.9 Neut % (Auto) 81.2 H Lymph % (Auto) 9.0 [place] % (Auto) 9.2 H Eos % (Auto) 0.5 Baso % (Auto) 0.1 Neut # (Auto) 4.6 Lymph # (Auto) 0.5 L [place] # (Auto) 0.5 Eos # (Auto) 0.0 Baso # (Auto) 0.0 WBC Differential . Differential Comment Auto diff final Sodium 146 H 143 Potassium 2.9 L* D 4.5 D Chloride 117 H D 107 D Carbon Dioxide 20.2 L 26.2 Anion Gap 9 10 BUN 22 H 27 H Creatinine 1.10 1.52 H Estimated GFR 65 L 45 L Random Glucose 133 H 121 H Calcium 6.4 L* D 9.2 D Prot Corrected Calcium 7.6 L Total Protein 4.6 L Result Diagrams: 05/19/18 20:33 05/19/18 22:29 Assessment and Plan - Plan 72y.o M with severe bone pain due to metastatic prostate cancer - Continue care as per primary and paliative care teams - No additional intervention needed - Pt made his decision to be transferred to hospice care. And will be transferred tonight Urology remains available as needed Discussed Condition With: Dr Mirian ALAN attending
[2018-05-20 14:04] LABS: Bacteria,Urine Occasional /hpf; Bilirubin,Urine Negative (Negative); Clarity,Urine Hazy (Clear); Color,Urine Yellow (Yellw/Straw); Glucose,Urine (UA) Negative (Negative); Leukocyte Esterase,Urine Trace (Negative); Nitrite,Urine Negative (Negative); Specific Gravity,Urine 1.017 (1.002-1.035); Squamous Epithelial Cell,Urine <1 /hpf (0-5)
--- NOTE | 2018-05-20 15:17 | P.PNIM ---
Subjective Interval history: 72-year-old male with a history of STAGE 4 metastatic prostate cancer who follows with Dr. Vela, who was seen in the ER this morning for intractable left hip pain CT showed metastasis to left hip, and patient was sent home with a prescription for Dilaudid. Prescription was not able to be filled on time, and patient found to be in acute intractable pain at home, brought in around 6 PM. Patient is currently somnolent, wakes up for exam, appears to be awake and listening to conversation, would not arouse to sternal rub, however will Suddenly and asked me to examine his left leg as I was moving the sheets off his leg. Patient is disoriented to year and month. Daughter at bedside provides most of the history. She says they have talked with hospice but that [facility] will not let them do chemotherapy. She says that father is a DNR. She is interested in palliative care consultation. PATIENT IS CONFUSED AND APPEARS UNCOMFORTABLE SEEN BY [facility]OS[facility] HAS BEEN CONSULTED WILL DISCHARGE TO INPT HOSPICE TODAY DC TO HOSPICE TODAY Physical Exam Vital signs: Vital Signs 05/19/18 19:52 05/19/18 22:33 05/19/18 23:58 Temperature 98 F Pulse Rate 98 H 85 81 Respiratory Rate 18 20 20 Blood Pressure 182/90 H 173/78 H 162/77 H Pulse Oximetry 95 98 99 05/20/18 04:34 05/20/18 06:05 05/20/18 08:00 Temperature 97.9 F Pulse Rate 82 85 Respiratory Rate 18 18 Blood Pressure 177/84 H 182/83 H Pulse Oximetry 99 97 05/20/18 11:55 Temperature 97.7 F Pulse Rate 87 Respiratory Rate 17 Blood Pressure 170/81 H Pulse Oximetry 99 Intake & Output 05/19/18 05/20/18 05/20/18 18:59 06:59 18:59 Intake Total 1000 / 1000 Balance 1000 / 1000 Weight 95.3 kg Intake: IV 1000 / 1000 NS Inj 1,000 ML @ 100 mls/hr IV 1000 / 1000 .CONT .Q10H [facility] Rx#:[id number] Other: Date of Last Bowel Movement 05/18/18 05/18/18 Weight On Admission 95.3 kg Narrative: GENERAL: He is awake can be alert talkative somewhat cooperative SKIN: Warm and dry. HEAD: Atraumatic. Normocephalic. EYES: Pupils equal and round. No scleral icterus. No injection or drainage. ENT: No nasal bleeding or discharge. Mucous membranes pink and moist. NECK: Trachea midline. No JVD. CARDIOVASCULAR: Regular rate and rhythm. S1-S2 no S3 or S4 RESPIRATORY: No accessory muscle use. Clear to auscultation. Breath sounds equal bilaterally. GASTROINTESTINAL: Abdomen soft, non-tender, nondistended. Hepatic and splenic margins not palpable. MUSCULOSKELETAL: Extremities without clubbing, cyanosis, or edema. No obvious deformities. Has tenderness and pain in the left hip and decreased range of motion to the left lower extremity NEUROLOGICAL: Awake and alert. No obvious cranial nerve deficits. Motor grossly within normal limits. Patient moves bilateral upper extremities, as well as bilateral lower extremities. Does not want me to examine left leg. Perfusion intact. Patient moves legs spontaneously no broken skin. Patient has swelling to the left lower extremity Insight and judgment are limited to pain Mood and behavior appropriate for the situation Results - Labs CBC & Chem 7: 05/19/18 20:33 05/19/18 22:29 Laboratory Results - last 24 hr 05/19/18 05/19/18 05/19/18 20:33 20:33 22:29 WBC 5.6 RBC 3.91 L Hgb 10.4 L Hct 31.2 L MCV 79.7 L MCH 26.7 L MCHC 33.5 RDW 14.6 Plt Count 223 MPV 7.9 Neut % (Auto) 81.2 H Lymph % (Auto) 9.0 [place] % (Auto) 9.2 H Eos % (Auto) 0.5 Baso % (Auto) 0.1 Neut # (Auto) 4.6 Lymph # (Auto) 0.5 L [place] # (Auto) 0.5 Eos # (Auto) 0.0 Baso # (Auto) 0.0 WBC Differential . Differential Comment Auto diff final Sodium 146 H 143 Potassium 2.9 L* D 4.5 D Chloride 117 H D 107 D Carbon Dioxide 20.2 L 26.2 Anion Gap 9 10 BUN 22 H 27 H Creatinine 1.10 1.52 H Estimated GFR 65 L 45 L Random Glucose 133 H 121 H Calcium 6.4 L* D 9.2 D Prot Corrected Calcium 7.6 L Total Protein 4.6 L Urine Color Urine Clarity Urine pH Ur Specific [place] Urine Protein Urine Glucose (UA) Urine Ketones Urine Occult Blood Urine Nitrate Urine Bilirubin Urine Urobilinogen Ur Leukocyte Esterase Urine RBC Urine WBC Ur Squamous Epith Cells Urine Bacteria Micro UA Comment Ur Microscopic Review Urine Culture Comments 05/20/18 09:00 WBC RBC Hgb Hct MCV MCH MCHC RDW Plt Count MPV Neut % (Auto) Lymph % (Auto) [place] % (Auto) Eos % (Auto) Baso % (Auto) Neut # (Auto) Lymph # (Auto) [place] # (Auto) Eos # (Auto) Baso # (Auto) WBC Differential Differential Comment Sodium Potassium Chloride Carbon Dioxide Anion Gap BUN Creatinine Estimated GFR Random Glucose Calcium Prot Corrected Calcium Total Protein Urine Color Yellow Urine Clarity Hazy H Urine pH 5.0 Ur Specific [place] 1.017 Urine Protein 30 H Urine Glucose (UA) Negative Urine Ketones Trace H Urine Occult Blood Moderate H Urine Nitrate Negative Urine Bilirubin Negative Urine Urobilinogen Less than 2 Ur Leukocyte Esterase Trace H Urine RBC 6 H Urine WBC 50 H Ur Squamous Epith Cells <1 Urine Bacteria Occasional H Micro UA Comment Culture indicated Ur Microscopic Review Not Reportable Urine Culture Comments Culture indicated - Procedures NONE Assessment and Plan - Plan Metastatic prostate cancer to bone Intractable malignant pain CT pelvis from this morning with left hip fracture = We will order pain regimen. Start on OxyContin 20 mg twice daily for basal pain control. = We will continue chemotherapy medication Consult urology. Consult palliative care. Will place hospice consult Patient reports dysuria as a positive finding on review of systems. Will check urinalysis. CODE STATUS DNR as per discussion with daughter PATIENT AND FAMILY WANT TO BE A DNR AND GO TO INPATIENT HOSPICE FOR PAIN CONTROL WILL DC TO HOSPICE TODAY [facility]OOK RN AND PT AND CM Code Status: DNR Discussed Condition With: RN AND PT AND CM AND PALLIATIVE AND HOSPICE Discharge Planning: DC TO INPT HOSPICE TODAY
--- NOTE | 2018-05-20 15:18 | P.DS ---
Date of admission: 05/20/18 01:55 Primary care physician: UNKNOWN Attending physician on discharge: Tavares Kendrick Anticipated date of discharge: 05/20/18 Brief History from admission: 32-year-old male with a history of 4 metastatic prostate cancer who follows with Dr. Vela, who was seen in the ER this morning for intractable left hip pain CT showed metastasis to left hip, and patient was sent home with a prescription for Dilaudid. Prescription was not able to be filled on time, and patient found to be in acute intractable pain at home, brought in around 6 PM. Patient is currently somnolent, wakes up for exam, appears to be awake and listening to conversation, would not arouse to sternal rub, however will Suddenly and asked me to examine his left leg as I was moving the sheets off his leg. Patient is disoriented to year and month. Daughter at bedside provides most of the history. She says they have talked with hospice but that [facility] will not let them do chemotherapy. She says that father is a DNR. She is interested in palliative care consultation. Family history attempted but patient very poor historian Patient update on day of discharge: 72-year-old male with a history of STAGE 4 metastatic prostate cancer who follows with Dr. Vela, who was seen in the ER this morning for intractable left hip pain CT showed metastasis to left hip, and patient was sent home with a prescription for Dilaudid. Prescription was not able to be filled on time, and patient found to be in acute intractable pain at home, brought in around 6 PM. Patient is currently somnolent, wakes up for exam, appears to be awake and listening to conversation, would not arouse to sternal rub, however will Suddenly and asked me to examine his left leg as I was moving the sheets off his leg. Patient is disoriented to year and month. Daughter at bedside provides most of the history. She says they have talked with hospice but that [facility] will not let them do chemotherapy. She says that father is a DNR. She is interested in palliative care consultation. PATIENT IS CONFUSED AND APPEARS UNCOMFORTABLE SEEN BY [facility] HAS BEEN CONSULTED WILL DISCHARGE TO INPT HOSPICE TODAY DC TO HOSPICE TODAY DS: Summary Hospital Course: 72-year-old male with a history of STAGE 4 metastatic prostate cancer who follows with Dr. Vela, who was seen in the ER this morning for intractable left hip pain CT showed metastasis to left hip, and patient was sent home with a prescription for Dilaudid. Prescription was not able to be filled on time, and patient found to be in acute intractable pain at home, brought in around 6 PM. Patient is currently somnolent, wakes up for exam, appears to be awake and listening to conversation, would not arouse to sternal rub, however will Suddenly and asked me to examine his left leg as I was moving the sheets off his leg. Patient is disoriented to year and month. Daughter at bedside provides most of the history. She says they have talked with hospice but that [facility] will not let them do chemotherapy. She says that father is a DNR. She is interested in palliative care consultation. PATIENT IS CONFUSED AND APPEARS UNCOMFORTABLE SEEN BY [facility] HAS BEEN CONSULTED WILL DISCHARGE TO INPT HOSPICE TODAY DC TO HOSPICE TODAY - Time Spent with Patient Total time spent providing and/or coordinating discharge services: Greater than 30 minutes - Quality: VTE Deep Vein Thrombosis/Pulmonary Embolism Present on Admission: No Exam Vital signs: Vital Signs 05/19/18 19:52 05/19/18 22:33 05/19/18 23:58 Temperature 98 F Pulse Rate 98 H 85 81 Respiratory Rate 18 20 20 Blood Pressure 182/90 H 173/78 H 162/77 H Pulse Oximetry 95 98 99 05/20/18 04:34 05/20/18 06:05 05/20/18 08:00 Temperature 97.9 F Pulse Rate 82 85 Respiratory Rate 18 18 Blood Pressure 177/84 H 182/83 H Pulse Oximetry 99 97 05/20/18 11:55 Temperature 97.7 F Pulse Rate 87 Respiratory Rate 17 Blood Pressure 170/81 H Pulse Oximetry 99 Intake & Output 05/19/18 05/20/18 05/20/18 18:59 06:59 18:59 Intake Total 1000 / 1000 Balance 1000 / 1000 Weight 95.3 kg Intake: IV 1000 / 1000 NS Inj 1,000 ML @ 100 mls/hr IV 1000 / 1000 .CONT .Q10H [facility] Rx#:[id number] Other: Date of Last Bowel Movement 05/18/18 05/18/18 Weight On Admission 95.3 kg Narrative: GENERAL: He is awake can be alert talkative somewhat cooperative SKIN: Warm and dry. HEAD: Atraumatic. Normocephalic. EYES: Pupils equal and round. No scleral icterus. No injection or drainage. ENT: No nasal bleeding or discharge. Mucous membranes pink and moist. NECK: Trachea midline. No JVD. CARDIOVASCULAR: Regular rate and rhythm. S1-S2 no S3 or S4 RESPIRATORY: No accessory muscle use. Clear to auscultation. Breath sounds equal bilaterally. GASTROINTESTINAL: Abdomen soft, non-tender, nondistended. Hepatic and splenic margins not palpable. MUSCULOSKELETAL: Extremities without clubbing, cyanosis, or edema. No obvious deformities. Has tenderness and pain in the left hip and decreased range of motion to the left lower extremity NEUROLOGICAL: Awake and alert. No obvious cranial nerve deficits. Motor grossly within normal limits. Patient moves bilateral upper extremities, as well as bilateral lower extremities. Does not want me to examine left leg. Perfusion intact. Patient moves legs spontaneously no broken skin. Patient has swelling to the left lower extremity Insight and judgment are limited to pain Mood and behavior appropriate for the situation Results Procedures completed during hospitalization: NONE Completed studies during hospitalization: Laboratory Results WBC 5.6 th/mm3 (4.0-11.0) 05/19/18 20:33 RBC 3.91 mil/mm3 (4.50-5.90) L 05/19/18 20:33 Hgb 10.4 gm/dL (13.0-17.0) L 05/19/18 20:33 Hct 31.2 % (39.0-51.0) L 05/19/18 20:33 MCV 79.7 fL (80.0-100.0) L 05/19/18 20:33 MCH 26.7 pg (27.0-34.0) L 05/19/18 20:33 MCHC 33.5 % (32.0-36.0) 05/19/18 20:33 RDW 14.6 % (11.6-17.2) 05/19/18 20: Plt Count 223 th/mm3 (150-450) 05/19/18 20:33 MPV 7.9 fL (7.0-11.0) 05/19/18 20:33 Neut % (Auto) 81.2 % (16.0-70.0) H 05/19/18 20:33 Lymph % (Auto) 9.0 % (9.0-44.0) 05/19/18 20: [place] % (Auto) 9.2 % (0.0-8.0) H 05/19/18 20: Eos % (Auto) 0.5 % (0.0-4.0) 05/19/18 20: Baso % (Auto) 0.1 % (0.0-2.0) 05/19/18 20: Neut # (Auto) 4.6 th/mm3 (1.8-7.7) 05/19/18 20: Lymph # (Auto) 0.5 th/mm3 (1.0-4.8) L 05/19/18: [place]ess # (Auto) 0.5 th/mm3 (0.0-0.9) 05/19/18: Eos # (Auto) 0.0 th/mm3 (0.0-0.4) 05/19/18: Baso # (Auto) 0.0 th/mm3 (0.0-0.2) 05/19/18 20:33 WBC Differential . 05/19/18: Differential Comment Auto diff final 05/19/18: Sodium 143 meq/L (136-145) 05/19/18 22: Potassium 4.5 meq/L (3.5-5.1) D 05/19/18 22: Chloride 107 meq/L (98-107) D 05/19/18 22:29 Carbon Dioxide 26.2 meq/L (21.0-32.0) 05/19/18 22: Anion Gap 10 meq/L (5-15) 05/19/18 22:29 BUN 27 mg/dL (7-18) H 05/19/18 22:29 Creatinine 1.52 mg/dL (0.60-1.30) H 05/19/18 22:29 Estimated GFR 45 mL/min (>89) L 05/19/18 22:29 Random Glucose 121 mg/dL (74-106) H 05/19/18 22:29 Calcium 9.2 mg/dL (8.5-10.1) D 05/19/18 22: Prot Corrected Calcium 7.6 mg/dL (8.5-10.1) L 05/19/18 20:33 Total Protein 4.6 g/dL (6.4-8.2) L 05/19/18 20:33 Urine Color Yellow (Yellw/Straw) 05/20/18 09:00 Urine Clarity Hazy (Clear) H 05/20/18 09:00 Urine pH 5.0 (5.0-8.5) 05/20/18 09:00 Ur Specific [place] 1.017 (1.002-1.035) 05/20/18 09:00 Urine Protein 30 mg/dL (Neg-Trace) H 05/20/18 09:00 Urine Glucose (UA) Negative mg/dL (Negative) 05/20/18 09:00 Urine Ketones Trace mg/dL (Negative) H 05/20/18 09:00 Urine Occult Blood Moderate (Negative) H 05/20/18 09:00 Urine Nitrate Negative (Negative) 05/20/18 09:00 Urine Bilirubin Negative (Negative) 05/20/18 09:00 Urine Urobilinogen Less than 2 mg/dL (Less than 2) 05/20/18 09:00 Ur Leukocyte Esterase Trace (Negative) H 05/20/18 09:00 Urine RBC 6 /hpf (0-3) H 05/20/18 09:00 Urine WBC 50 /hpf (0-5) H 05/20/18 09:00 Ur Squamous Epith Cells <1 /hpf (0-5) 05/20/18 09:00 Urine Bacteria Occasional /hpf (None) H 05/20/18 09:00 Micro UA Comment Culture indicated 05/20/18 09:00 Ur Microscopic Review Not Reportable 05/20/18 09:00 Urine Culture Comments Culture indicated 05/20/18 09:00 Labs on day of discharge: Labs from last 24 hours 05/20/18 05/19/18 05/19/18 09:00 22:29 20:33 WBC RBC Hgb Hct MCV MCH MCHC RDW Plt Count MPV Neut % (Auto) Lymph % (Auto) [place] % (Auto) Eos % (Auto) Baso % (Auto) Neut # (Auto) Lymph # (Auto) [place] # (Auto) Eos # (Auto) Baso # (Auto) WBC Differential Differential Comment Sodium 143 146 H Potassium 4.5 D 2.9 L* D Chloride 107 D 117 H D Carbon Dioxide 26.2 20.2 L Anion Gap 10 9 BUN 27 H 22 H Creatinine 1.52 H 1.10 Estimated GFR 45 L 65 L Random Glucose 121 H 133 H Calcium 9.2 D 6.4 L* D Prot Corrected Calcium 7.6 L Total Protein 4.6 L Urine Color Yellow Urine Clarity Hazy H Urine pH 5.0 Ur Specific [place] 1.017 Urine Protein 30 H Urine Glucose (UA) Negative Urine Ketones Trace H Urine Occult Blood Moderate H Urine Nitrate Negative Urine Bilirubin Negative Urine Urobilinogen Less than 2 Ur Leukocyte Esterase Trace H Urine RBC 6 H Urine WBC 50 H Ur Squamous Epith Cells <1 Urine Bacteria Occasional H Micro UA Comment Culture indicated Ur Microscopic Review Not Reportable Urine Culture Comments Culture indicated 05/19/18 20:33 WBC 5.6 RBC 3.91 L Hgb 10.4 L Hct 31.2 L MCV 79.7 L MCH 26.7 L MCHC 33.5 RDW 14.6 Plt Count 223 MPV 7.9 Neut % (Auto) 81.2 H Lymph % (Auto) 9.0 [place] % (Auto) 9.2 H Eos % (Auto) 0.5 Baso % (Auto) 0.1 Neut # (Auto) 4.6 Lymph # (Auto) 0.5 L [place] # (Auto) 0.5 Eos # (Auto) 0.0 Baso # (Auto) 0.0 WBC Differential . Differential Comment Auto diff final Sodium Potassium Chloride Carbon Dioxide Anion Gap BUN Creatinine Estimated GFR Random Glucose Calcium Prot Corrected Calcium Total Protein Urine Color Urine Clarity Urine pH Ur Specific [place] Urine Protein Urine Glucose (UA) Urine Ketones Urine Occult Blood Urine Nitrate Urine Bilirubin Urine Urobilinogen Ur Leukocyte Esterase Urine RBC Urine WBC Ur Squamous Epith Cells Urine Bacteria Micro UA Comment Ur Microscopic Review Urine Culture Comments Discharge Plan - Discharge Disposition Patient Disposition: 51 Hospice/Med Facility - Discharge Condition Condition: Fair - Discharge Order Discharge Orders: Discharge Order (Routine); Ordered 05/20/18 Ordered By: Tavares Kendrick - Discharge Details Anticipated Discharge Date: 05/20/18 Discharge Comment: DC TO INPT HOSPICE - Physicians Team Primary Care Provider: UNKNOWN, Attending Provider: Tavares Kendrick Other Providers: Matteo Vela MD ; Miguel,Humana ; Cami Adorno MD
[2018-05-20 16:13] VITALS: BP 192/82; PULSE 86; RESP 18; TEMP 97.2; O2SAT 97
== END 2018-05-20 18:43 | disposition hospice, inpatient (51) ==
LOC: NEDA 19:44 → NEPC 19:44 → NEDA 05-20 04:53 → N06 05-20 04:54
PROVIDERS: ADMIT Hospitalist; ATTEND Hospitalist